=== PATIENT | female | born 1990 | race Caucasian/White ===

== ENCOUNTER 2021-11-26 16:32 | Outpatient (CLI) | payer BC, SELFPAY ==
[2021-11-26 17:13] LABS: Beta HCG Quantitative 229.87 mIU/ML
[2021-11-29 08:37] LABS: Progesterone 0.5 ng/mL (***)
== END 2021-11-26 16:33 | disposition home or self-care (01) ==
LOC: ANHLAB 16:34
PROVIDERS: Visit Provider Student in an Organized Health Care Education/Training Program
DX: N91.2 Amenorrhea, unspecified (principal)
CPT/HCPCS: 36415; 84144; 84702

== ENCOUNTER 2022-03-12 11:08 | Outpatient (CLI) | payer BC, SELFPAY ==
[2022-03-12 11:52] LABS: Beta HCG Quantitative < 2.39 mIU/ML
== END 2022-03-12 11:09 | disposition home or self-care (01) ==
PROVIDERS: Visit Provider Student in an Organized Health Care Education/Training Program
DX: O03.9 Complete or unspecified spontaneous abortion without complication (principal); Z3A.00 Weeks of gestation of pregnancy not specified
CPT/HCPCS: 36415; 84702